=== PATIENT | male | born 1975 | race Caucasian/White ===

== ENCOUNTER → 2020-12-09 | Outpatient (CLI) | payer BC ==
--- NOTE | 2020-12-09 18:17 | RAD ---
Right wrist 3 views. HISTORY: Right wrist pain 3 views were taken of the right wrist. There is a subchondral cyst in the lunate. There is no fractur e or acute osseous abnormality. IMPRESSION: 1. Small cyst in the lunate. 2. No other acute osseous abnormality noted in the right wrist. Electronically signed by: Bonilla Walsh MD (12/09/2020 6:14 PM) [facility]
== END ==
LOC: RAD 17:01
PROVIDERS: ATTEND Family Medicine
DX: M85.68 Other cyst of bone, other site (principal); M25.431 Effusion, right wrist
CPT/HCPCS: 73110